=== PATIENT | male | born 1935 | race Caucasian/White ===

== ENCOUNTER → 2016-07-12 08:03 | Outpatient (CLI) | payer MEDICARE, OTHER ==
[2016-05-02 10:38] VITALS: BMI 37.3
[~2016-07-12 08:03] MED LIST: ALLEGRA ALLERG180 MG PO; BAYER CHEWABLE81 MG PO; BETAPACE 80 MG80 MG PO; CARDIZEM LA420 MG PO; CATAFLAM50 MG PO; CELEBREX200 MG PO; CENTRUM SILVER1 TA2 PO; COZAAR100 MG PO; FIBER-LAX625 MG PO; HYDROCODONE-APA1 TAB PO; HYZAAR 100-25 T1 TAB PO; KLOR-CON M2020 MEQ PO; LASIX40 MG PO; LEVAQUIN750 MG PO; PLAVIX75 MG PO; PRADAXA150 MG PO; PRADAXA75 MG PO; PRILOSEC20 MG PO; PYRIDOXINE HCL100 MG PO; SYNTHROID25 MCG PO; XANAX0.25 MG; ZOFRAN4 MG PO
== END | disposition home or self-care (01) ==
LOC: D.RAD 08:03
DX: R10.10 Upper abdominal pain, unspecified (principal)

== ENCOUNTER → 2016-07-19 16:03 | Outpatient (CLI) | payer MEDICARE, OTHER ==
[2016-05-02 10:38] VITALS: BMI 37.3
== END | disposition home or self-care (01) ==
LOC: D.CT 16:03
DX: R10.9 Unspecified abdominal pain (principal)

== ENCOUNTER → 2016-08-30 12:36 | Outpatient (CLI) | payer MEDICARE, OTHER ==
[2016-05-02 10:38] VITALS: BMI 37.3
== END | disposition home or self-care (01) ==
LOC: D.CT 12:36
DX: M54.40 Lumbago with sciatica, unspecified side (principal)

== ENCOUNTER 2016-11-03 05:06 | Inpatient (IN) | payer MEDICARE, OTHER ==
[2016-11-02 15:24] LABS: APPEARANCE CLEAR (CLEAR); BILIRUBIN NEGATIVE (NEGATIVE); COLOR YELLOW (YELLOW); GLUCOSE NEGATIVE (NEGATIVE); KETONE NEGATIVE (NEGATIVE); LEUKOCYTE ESTERASE NEGATIVE (NEGATIVE); NITRITE NEGATIVE (NEGATIVE); PROTEIN NEGATIVE (NEGATIVE); SPECIFIC GRAVITY 1.015 (1.005-1.020); UROBILINOGEN NORMAL (NORMAL)
[2016-11-02 15:29] LABS: BASOPHILS 0.3 % (0-2); EOSINOPHILS 5.1 % (0-7); HEMATOCRIT 42.5 % (42.0-54.0); IMMATURE GRANULOCYTES 0.2 % (0-5); LYMPHOCYTES 35.2 % (15-50); MCH 31.7 pg (26.0-34.0); MCHC 32.9 g/dL (31.0-37.0); MCV 96.2 fL (80.0-100.0); MONOCYTES 12.6 % (2-11); NEUTROPHILS 46.6 % (40-80); PLATELET COUNT 222 10x3/uL (130-400); RBC 4.42 10x6/uL (4.20-6.10); RDW 14.2 % (11.5-14.5); WBC 6.1 10x3/uL (4.8-10.8)
[2016-11-02 15:57] LABS: ANION GAP 13.5 mmol/L (8-16); CALCIUM 8.6 mg/dL (8.5-10.1); CARBON DIOXIDE 26.6 mmol/L (21.0-32.0); CREATININE - SERUM 1.1 mg/dL (0.6-1.3); POTASSIUM - SERUM 4.1 mmol/L (3.5-5.1)
[2016-11-03] VITALS (9 sets, daily range): BP systolic 120–149; BP diastolic 61–79; Ht 180.3 cm; Wt 118.2 kg
[~2016-11-03] VITALS: Ht 180.3 cm; Wt 118.2 kg
[~2016-11-03 05:06] MED LIST changes: +DICLOFENAC SODI50 MG PO; +ELIQUIS2.5 MG PO; +LOSARTAN POTASS25 MG PO
[2016-11-03 16:25] LABS: BASOPHILS 0.1 % (0-2); EOSINOPHILS 3.2 % (0-7); HEMATOCRIT 39.1 % (42.0-54.0); HEMOGLOBIN 12.7 g/dL (13.5-17.5); IMMATURE GRANULOCYTES 0.1 % (0-5); LYMPHOCYTES 18.2 % (15-50); MCH 31.6 pg (26.0-34.0); MCHC 32.5 g/dL (31.0-37.0); MCV 97.3 fL (80.0-100.0); MEAN PLATELET VOLUME 10.3 fL (7.4-10.4); NEUTROPHILS 67.4 % (40-80); PLATELET COUNT 183 10x3/uL (130-400); RBC 4.02 10x6/uL (4.20-6.10); RDW 14.3 % (11.5-14.5); WBC 7.2 10x3/uL (4.8-10.8)
[2016-11-03 16:36] LABS: APTT 28.1 SECONDS (22.8-39.4); INR 1.15 (0.85-1.17); PROTIME 14.6 SECONDS (11.6-15.0)
--- NOTE | 2016-11-03 19:15 | NUR ---
REC'D PATIENT SITTING UP. ALERT AND ORIENTED X4. DENIED PAIN AT THIS TIME. NO DISTRESS NOTED. INSTRUCTED TO CALL IF NEEDED ANYTHING. VERBALIZED UNDERSTANDING. IS AT BEDSIDE. WILL CONT TO MONITOR THROUGHOUT THE NIGHT. BED LOW, LOCKED, CALL LIGHT IN REACH.
[2016-11-04] VITALS: BP 139/76
--- NOTE | 2016-11-04 03:56 | NUR ---
PATIENT IS RESTING IN BED. NO DISTRESS NOTED. IS AT BEDSIDE. WILL CONT TO MONITOR. BED LOW, LOCKED, CALL LIGHT IN REACH.
[2016-11-04 04:00] VITALS: BP 131/67
--- NOTE | 2016-11-04 07:30 | NUR ---
RECIEVED PT DURING WALKING ROUNDS. PT RESTING IN BED WITH NO COMPLAINTS OF PAIN OR DISCOMFORT AT THIS TIME. ASSESSMENT DONE PER FLOWSHEET. BED IN LOW POSITION AND CALL LIGHT WITHIN REACH. WILL CONTINUE TO MONITOR.
[2016-11-04 09:01] VITALS: BP 150/72
--- NOTE | 2016-11-04 10:48 | HP ---
PATIENT: YAMILA GOODWIN MEDICAL RECORD: [id number] ACCOUNT: [id number] LOCATION:[facility] [address] : 36 ADMISSION DATE: 11/03/16 HISTORY AND PHYSICAL EXAMINATION CHIEF COMPLAINT: Back pain. HISTORY OF PRESENT ILLNESS: This is a pleasant 81-year-old gentleman, who is accompanied by his , who has complaints of back pain that is radicular into both legs, but left is worse than right. It is most difficult to walk, standing, makes pain horrendous, sitting pain goes away. He has occasional numbness, but it is rigor. He is on Plavix due to stent placed in April by Dr. Mcclain and Eliquis for AFib. He does not do well with steroids. They caused him to have atrial fib. He has had an MRI that shows foraminal stenosis and has known neurogenic claudication. PAST MEDICAL HISTORY: Significant for the aforementioned AFib and stents. PAST SURGICAL HISTORY: Bilateral knee replacements, cholecystectomy, hernia repair, pacemaker along with stent placement. FAMILY HISTORY: Both parents have . SOCIAL HISTORY: He is . FAMILY DOCTOR: Dr. Wesley. WET END HELPER: Dr. Mcclain. ALLERGIES: PENICILLIN AND STEROIDS. CURRENT MEDICATIONS: Eliquis and Plavix along with Synthroid, sotalol, Lasix, potassium, omeprazole, aspirin, losartan, Linda, diclofenac and fiber. MRI shows L3-L4, left canal stenosis, L5-S1 foraminal stenosis on the left. REVIEW OF SYSTEMS: He denies any recent chest pain, shortness of breath or weight changes. PHYSICAL EXAMINATION: HEENT: Normocephalic. Pupils are equal, reactive to light. CHEST: Clear bilaterally to auscultation. HEART: There is a paced rhythm. EXTREMITIES: Pain in both legs with standing. Dorsiflexion, plantarflexion are intact. IMPRESSIONS: L5-S1 foraminal stenosis on the left, L3 lumbar canal stenosis. PLAN: An L3-L4 bilateral laminectomy and foraminotomy, L5-S1 laminectomy and foraminotomy on the left. The risk and benefits of surgery have been explained to him in detail. Risks include bleeding, failure to relieve symptoms, problems with anesthesia and . Time was allowed for questions, questions were answered. The patient wishes to proceed with surgery. TRANSINT:[id number] Voice Confirmation ID: [id number] DOCUMENT ID: [id number] HISTORY AND PHYSICAL [id number] YAMILA GOODWIN Dictated By: JACKIE PELLETIER I have interviewed/examined the above patient and agree with these documented findings. GERONIMO WHEELER MD at 1048 CC: [id number] DICTATION DATE: 11/02/16 1555 TRACTOR TECHNICIAN: 11/02/16 1833 ADM IN [place] [id number] [place] [id number]
--- NOTE | 2016-11-04 10:48 | OP ---
PATIENT NAME: YAMILA GOODWIN MEDICAL RECORD: [id number] :37 LOCATION:[facility] [address] ADMISSION DATE:11/03/16 SURGEON: GERONIMO PRADHAN MD DATE OF OPERATION: 11/03/2016 DIAGNOSES: L3-L4 lumbar canal stenosis with nerve root compression and L5-S1 foraminal stenosis with nerve root compression. SURGEON: Gernoimo Pradhan MD. ESTIMATED BLOOD LOSS: 50 cc. SUMMARY: The patient was taken to the operating room and after an adequate level of general anesthetic, was placed in a prone position and prepped and draped in the usual aseptic manner. A matrix operating channel was introduced to the interlaminar space on the left using a C-arm fluoroscope to guide this positioning in the operating room. Following this, the medial aspect of the facet joint at L3-L4 was removed with the Midas Harley drill and a Cloward and Kerrison punch was used to remove the overlying lamina from L3 and L4, giving a thorough decompression on the left side. The matrix channel was then directed medially into the right and then further removal of lamina and ventral spinous process was carried down decompressing the canal more centrally and then right neural foramen, a Kerrison punch was used to enlarge the neural foramen on the right. When a thorough decompression had been carried out, the wound was irrigated with an antibiotic solution and then attention was directed to the L5-S1 interlaminar space where a matrix channel was then directed through a 1 inch incision using the C-arm fluoroscope to guide this direction. The medial aspect of the facet joint on the left was then removed and a Kerrison was used to enlarge the neural foramen. A ligamentum flavum was removed, decompressing the neural elements. When this had been completed, the wound was irrigated as well and then a closure carried down in layers using 2-0 and 3-0 Dexon on the deep tissues and then a subcuticular stitch with 4-0 Dexon followed by skin glue. The patient was then taken to recovery in stable condition. TRANSINT:[id number] Voice Confirmation ID: [id number] DOCUMENT ID: [id number] GERONIMO PRADHAN MD at 1048 CC: CECE WINSLOW MD [id number] DICTATION DATE: 11/03/16 1411 RESAW MACHINE OPERATOR: 11/03/16 2327 ADM IN [facility] [address] [place] [id number]
--- NOTE | 2016-11-04 13:08 | NUR ---
IV REMOVED WITH CATH INTACT, DISCHARGE INTSTRUCTIONS GIVEN. PT DISCHARGED VIA WHEELCHAIR TO HOME WITH A FAMILY MEMBER
== END 2016-11-04 13:11 | disposition home or self-care (01) | DRG 42 ==
LOC: D.OPS 05:06 → D.PAN 11:00 → D.MS 14:33 → D.OPS 14:34 → D.MS 11-04 13:11
PROVIDERS: ADMIT Neurological Surgery
PROC: 01NB0ZZ Release Lumbar Nerve, Open Approach (ICD-10-PCS; principal; 2016-11-03 11:00)
DX: G54.4 Lumbosacral root disorders, not elsewhere classified (principal); M48.06 Spinal stenosis, lumbar region; M48.07 Spinal stenosis, lumbosacral region

== ENCOUNTER 2016-11-03 13:00 | Outpatient (CLI) | payer MEDICARE, OTHER ==
[2016-11-03 17:58] VITALS: BMI 36.3
== END 2016-11-04 23:59 | disposition short-term general hospital (02) ==
LOC: D.OPS 13:00
DX: M48.06 Spinal stenosis, lumbar region (principal); G54.4 Lumbosacral root disorders, not elsewhere classified; I25.10 Atherosclerotic heart disease of native coronary artery without angina pectoris; I10 Essential (primary) hypertension; K21.9 Gastro-esophageal reflux disease without esophagitis; Z95.5 Presence of coronary angioplasty implant and graft; E03.9 Hypothyroidism, unspecified; Z01.812 Encounter for preprocedural laboratory examination

== ENCOUNTER → 2017-02-12 15:32 | Outpatient (CLI) | payer MEDICARE, OTHER | END | disposition home or self-care (01) | LOC: D.US 15:32 | DX: G45.9 Transient cerebral ischemic attack, unspecified (principal) ==

== ENCOUNTER → 2017-09-13 10:57 | Outpatient (CLI) | payer MEDICARE, OTHER | END | disposition home or self-care (01) | LOC: D.CT 10:57 | DX: M25.511 Pain in right shoulder (principal) ==

== ENCOUNTER 2017-12-22 02:02 | Observation (INO) | payer MEDICARE, OTHER ==
[~2017-12-22] VITALS: Ht 180.3 cm; Wt 120.3 kg
--- NOTE | ~2017-12-22 | HP ---
PATIENT: YAMILA GOODWIN MEDICAL RECORD: [id number] ACCOUNT: [id number] LOCATION:[address] : 36 ADMISSION DATE: 12/22/17 HISTORY AND PHYSICAL EXAMINATION REASON FOR ADMISSION: Irregular heartbeat and chest pain. HISTORY OF PRESENT ILLNESS: The patient is an 82-year-old male with known history of coronary artery disease post-PTCA and atrial fibrillation. He may have increasing peripheral edema, thought due to his diltiazem. His armorer technician switched him to digoxin approximately 2 weeks ago. He felt fine in the last 2 weeks, moving the yard etc without chest pain. Last evening, he notes irregular heartbeat and some chest tightness. He came to the ER for that reason and he was in atrial fibrillation with a rate of 98. Initial cardiac enzymes showed an elevation of CPK-MB and CPK with normal troponin. His EKG did not show acute ST segment changes. He is admitted for this reason and for cardiology evaluation. PAST MEDICAL HISTORY: AODM, CAD post-multivessel PTCA, atrial fibrillation, obesity, allergic rhinitis, osteoarthritis, essential hypertension, hypothyroidism, history of positive PPD, GERD. PAST SURGICAL HISTORY: Lumbar decompression for stenosis, open cholecystectomy, bilateral knee replacements. Placement of permanent pacemaker. ALLERGIES: STEROIDS MAKE HIS HEART RACE, ALSO PENICILLIN. SOCIAL HISTORY: He quit smoking remotely. He is a nondrinker. He is and retired and his has advancing Alzheimer's dementia. FAMILY HISTORY: Positive for hypertension. CURRENT MEDICATIONS: Linda 180 mg daily, Zithromax 250 mg daily, Eliquis 2.5 mg p.o. b.i.d., Plavix 75 mg p.o. daily, digoxin 0.125 mg p.o. daily, losartan 25 mg p.o. daily, sotalol 120 mg p.o. b.i.d., aspirin 81 mg daily, diclofenac 25 mg p.o. b.i.d., Lasix 40 mg p.o. daily, Klor-Con 20 mEq p.o. t.i.d., Fiber-Lax 625 tablet daily, Prilosec 20 mg daily, levothyroxine 25 mcg p.o. every morning, before meals, breakfast, vitamin B6 100 mg p.o. daily, multivitamin, Centrum Silver 1 p.o. daily. REVIEW OF SYSTEMS: GENERAL: He felt well prior to this episode and for mild respiratory illness. HEENT: No fever, sinus congestion, or sore throat. He has mild hearing difficulty chronically. CARDIAC: Palpitations as mentioned. Mild left precordial chest discomfort after onset of AFib. He has had costochondritis symptoms in the past, but this felt different. It did not radiate. GASTROINTESTINAL: No nausea, vomiting, change in stools or blood per rectum. GENITOURINARY: Nocturia once nightly. ENDOCRINE: Denies polyuria, polydipsia, heat or cold intolerance. NEUROLOGIC: No history of stroke, TIA, or vascular headaches. INTEGUMENT: No rash or itching. PSYCHIATRIC: Denies depressed mood. PHYSICAL EXAMINATION: HISTORY AND PHYSICAL [id number] YAMILA GOODWIN GENERAL: Alert male at this time, in no acute distress. He is alert and oriented. VITAL SIGNS: Heart rate is 98 and regular, blood pressure 161/102 with a sat of 95% on room air, temperature of 98.1. HEENT: Eyes are clear. NECK: No bruits or masses. CHEST: Chest is clear. Chest wall is somewhat tender over the left third sternal rib intercostal space. HEART: Irregular rate without gallop. ABDOMEN: Obese, soft, nontender. GENITOURINARY: Deferred. EXTREMITIES: Show 2+ pretibial edema of the knees and to the feet. NEUROLOGIC: Gait is normal. Speech is clear. Motor and sensory is grossly intact. LABORATORY DATA: His white count is 6900 with H&H of 15.6 and 45.4, platelet count 226,000. Potassium is 4.2, BUN and creatinine are 10 and 1.2, calcium and magnesium are normal. CPK was 323, elevated; CPK-MB is 5. Troponin is less than 0.017. EKG shows atrial fibrillation with a rate of 98, no acute ST segment changes. Chest x-ray shows degenerative changes of the thoracic spine, left chest pacemaker, no cardiopulmonary disease otherwise. ASSESSMENT: 1. Recurrent atrial fibrillation 2. Chest pain. 3. Known coronary artery disease. 4. Hypertension. 5. Obesity. 6. Osteoarthritis. 7. Gastroesophageal reflux disease. 8. Hypothyroidism. PLAN: We will check cardiac enzymes, though this is unlikely angina at this point. Cardiology will need to readdress his antiarrhythmics. He had been well controlled on Cardizem; however, had increased peripheral edema, so it was changed to digoxin as well as sotalol. We will increase losartan for blood pressure control. Further workup pending clinical course. TRANSINT:[id number] Voice Confirmation ID: [id number] DOCUMENT ID: [id number] CECE WINSLOW MD at 0952 CC: [id number] DICTATION DATE: 12/22/17 08 SOLID TIRE FINISHER: 12/22/17 0911 ADM IN [place] [id number] [place] [address]
[2017-12-22] MEDS ORDERED: LANOXIN125 MCG (02:12)
[2017-12-22 02:45] LABS: ALBUMIN 3.7 g/dL (3.4-5.0); ALKALINE PHOSPHATASE 134 U/L (46-116); ALT (SGPT) 29 U/L (10-68); BILIRUBIN - TOTAL 0.59 mg/dL (0.2-1.3); CALC OSMOLALITY 282 mosm/kg (275-300); CALCIUM 8.6 mg/dL (8.5-10.1); CARBON DIOXIDE 31.5 mmol/L (21.0-32.0); CHLORIDE - SERUM 106 mmol/L (98-107); CREATININE - SERUM 1.2 mg/dL (0.6-1.3); GLUCOSE 114 mg/dL (74-106); POTASSIUM - SERUM 4.2 mmol/L (3.5-5.1); PROTEIN - SERUM 7.6 g/dL (6.4-8.2); SODIUM 142 mmol/L (136-145); UREA NITROGEN 10 mg/dL (7-18); eGFR NON AFRICAN AMERICAN 62 mL/min (90-120)
[2017-12-22 02:55] LABS: BASOPHILS 0.1 % (0-2); EOSINOPHILS 4.5 % (0-7); HEMATOCRIT 45.4 % (42.0-54.0); HEMOGLOBIN 15.6 g/dL (13.5-17.5); IMMATURE GRANULOCYTES 0.1 % (0-5); LYMPHOCYTES 28.4 % (15-50); MCH 32.6 pg (26.0-34.0); MCHC 34.4 g/dL (31.0-37.0); MCV 94.8 fL (80.0-100.0); MEAN PLATELET VOLUME 10.4 fL (7.4-10.4); MONOCYTES 10.8 % (2-11); NEUTROPHILS 56.1 % (40-80); PLATELET COUNT 226 10x3/uL (130-400); RBC 4.79 10x6/uL (4.20-6.10); RDW 13.8 % (11.5-14.5); WBC 6.9 10x3/uL (4.8-10.8)
[2017-12-22 02:56] LABS: APPEARANCE CLEAR (CLEAR); BILIRUBIN NEGATIVE (NEGATIVE); COLOR YELLOW (YELLOW); GLUCOSE NEGATIVE (NEGATIVE); KETONE NEGATIVE (NEGATIVE); NITRITE NEGATIVE (NEGATIVE); PROTEIN NEGATIVE (NEGATIVE); UROBILINOGEN NORMAL (NORMAL)
[2017-12-22 02:57] LABS: CREATINE KINASE 323 UL (21-232); MAGNESIUM - SERUM 2.3 mg/dL (1.8-2.4); TROPONIN-I < 0.017 ng/mL (0.000-0.060)
[2017-12-22 03:05] LABS: APTT 30.1 SECONDS (22.8-39.4); INR 1.04 (0.85-1.17); PROTIME 13.2 SECONDS (11.6-15.0)
[2017-12-22 03:06] LABS: D-DIMER-QUANTITATIVE 0.36 ug/mLFEU (0.20-0.54)
[2017-12-22 03:31] VITALS: BP 150/87
[2017-12-22 04:58] VITALS: BP 174/84; Ht 180.3 cm; Wt 120.3 kg
[2017-12-22 08:52] LABS: CKMB 4.1 U/L (0.0-3.6); CREATINE KINASE 251 UL (21-232)
[2017-12-22 08:54] LABS: TROPONIN-I < 0.017 ng/mL (0.000-0.060)
[2017-12-22 08:57] VITALS: BP 128/68
[2017-12-22 12:32] VITALS: BP 133/83
[2017-12-22 14:44] LABS: CKMB 4.1 U/L (0.0-3.6); CREATINE KINASE 242 UL (21-232)
[2017-12-22 14:46] LABS: TROPONIN-I < 0.017 ng/mL (0.000-0.060)
[2017-12-22 16:09] VITALS: BP 164/75
[2017-12-22 18:49] LABS: CKMB 3.5 U/L (0.0-3.6); CREATINE KINASE 210 UL (21-232)
[2017-12-22 19:07] LABS: TROPONIN-I < 0.017 ng/mL (0.000-0.060)
[2017-12-22 20:00] VITALS: BP 130/70
[2017-12-23 04:00] VITALS: BP 164/69
[2017-12-23 05:54] LABS: ANION GAP 8.9 mmol/L (8-16); CALCIUM 8.1 mg/dL (8.5-10.1); CREATININE - SERUM 1.1 mg/dL (0.6-1.3); POTASSIUM - SERUM 3.9 mmol/L (3.5-5.1); T4 THYROXIN - FREE 0.96 ng/dL (0.76-1.46); THYROID STIMULATING HORMONE 1.84 uIU/mL (0.36-3.74)
[2017-12-23 08:55] VITALS: BP 185/81
[2017-12-23] MEDS ORDERED: COZAAR50 MG PO (10:15)
[2017-12-23] MEDS ORDERED: PROTONIX40 MG PO (10:16)
[2017-12-23] MEDS ORDERED: CATAPRES0.1 MG PO (10:16)
== END 2017-12-23 12:27 | disposition home or self-care (01) ==
LOC: D.ER 02:02 → OBSVTIME 03:37 → D.M2 03:37
PROVIDERS: Family Medicine
DX: I48.0 Paroxysmal atrial fibrillation (principal); I25.10 Atherosclerotic heart disease of native coronary artery without angina pectoris; Z95.5 Presence of coronary angioplasty implant and graft; E11.9 Type 2 diabetes mellitus without complications; E66.9 Obesity, unspecified; J30.9 Allergic rhinitis, unspecified; K21.9 Gastro-esophageal reflux disease without esophagitis; I10 Essential (primary) hypertension; E03.9 Hypothyroidism, unspecified

== ENCOUNTER 2018-05-06 15:48 | Emergency (ER) | payer MEDICARE, OTHER ==
[2018-05-06 16:47] LABS: BASOPHILS 0.2 % (0-2); EOSINOPHILS 3.9 % (0-7); HEMATOCRIT 40.4 % (42.0-54.0); HEMOGLOBIN 13.6 g/dL (13.5-17.5); IMMATURE GRANULOCYTES 0.2 % (0-5); LYMPHOCYTES 29.5 % (15-50); MCH 32.4 pg (26.0-34.0); MCHC 33.7 g/dL (31.0-37.0); MCV 96.2 fL (80.0-100.0); MEAN PLATELET VOLUME 10.1 fL (7.4-10.4); MONOCYTES 11.5 % (2-11); NEUTROPHILS 54.7 % (40-80); PLATELET COUNT 215 10x3/uL (130-400); RDW 14.1 % (11.5-14.5)
[2018-05-06 16:57] LABS: INR 1.15 (0.85-1.17); PROTIME 14.2 SECONDS (11.6-15.0)
[2018-05-06 17:03] LABS: ALBUMIN 3.1 g/dL (3.4-5.0); ALKALINE PHOSPHATASE 101 U/L (46-116); ALT (SGPT) 29 U/L (10-68); BILIRUBIN - TOTAL 0.66 mg/dL (0.2-1.3); CALC OSMOLALITY 286 mosm/kg (275-300); CALCIUM 8.4 mg/dL (8.5-10.1); CARBON DIOXIDE 30.2 mmol/L (21.0-32.0); CHLORIDE - SERUM 105 mmol/L (98-107); CREATININE - SERUM 1.3 mg/dL (0.6-1.3); GLUCOSE 116 mg/dL (74-106); POTASSIUM - SERUM 3.7 mmol/L (3.5-5.1); PROTEIN - SERUM 7.1 g/dL (6.4-8.2); SODIUM 144 mmol/L (136-145); UREA NITROGEN 11 mg/dL (7-18); eGFR NON AFRICAN AMERICAN 56 mL/min (90-120)
[2018-05-06 17:09] LABS: CREATINE KINASE 165 UL (21-232); MAGNESIUM - SERUM 1.9 mg/dL (1.8-2.4); TROPONIN-I < 0.017 ng/mL (0.000-0.060)
[2018-05-06 18:19] LABS: CKMB 2.2 U/L (0.0-3.6)
== END 2018-05-06 18:48 | disposition home or self-care (01) ==
LOC: D.ER 15:48
PROVIDERS: Family Medicine
DX: I48.91 Unspecified atrial fibrillation (principal); I10 Essential (primary) hypertension

== ENCOUNTER 2018-12-01 21:15 | Emergency (ER) | payer MEDICARE, OTHER ==
[~2018-12-01] VITALS: Ht 180.3 cm; Wt 122.5 kg
[~2018-12-01 21:15] MED LIST changes: +CATAPRES0.1 MG PO; +COZAAR50 MG PO; +LANOXIN125 MCG; +PROTONIX40 MG PO
[2018-12-01 21:27] VITALS: Ht 180.3 cm; Wt 122.5 kg
[2018-12-01 23:08] VITALS: BP 165/78
== END 2018-12-01 23:08 | disposition home or self-care (01) ==
LOC: D.ER 21:15
DX: S61.215A Laceration without foreign body of left ring finger without damage to nail, initial encounter (principal); W18.30XA Fall on same level, unspecified, initial encounter; Y93.89 Activity, other specified; Y92.89 Other specified places as the place of occurrence of the external cause

== ENCOUNTER 2019-10-19 19:24 | Emergency (ER) | payer MEDICARE, OTHER ==
[~2019-10-19] VITALS: Ht 180.3 cm; Wt 122.7 kg
[2019-10-19 19:37] VITALS: Ht 180.3 cm; Wt 122.7 kg
[2019-10-19 19:56] LABS: BASOPHILS 0.2 % (0-2); EOSINOPHILS 4.4 % (0-7); HEMOGLOBIN 13.8 g/dL (13.5-17.5); IMMATURE GRANULOCYTES 0.2 % (0-5); LYMPHOCYTES 27.5 % (15-50); MCH 31.7 pg (26.0-34.0); MCHC 32.9 g/dL (31.0-37.0); MCV 96.6 fL (80.0-100.0); MONOCYTES 10.3 % (2-11); NEUTROPHILS 57.4 % (40-80); PLATELET COUNT 184 10x3/uL (130-400); RBC 4.35 10x6/uL (4.20-6.10); RDW 14.5 % (11.5-14.5); WBC 8.2 10x3/uL (4.8-10.8)
[2019-10-19 20:04] LABS: CALC OSMOLALITY 282 mosm/kg (275-300); CALCIUM 8.2 mg/dL (8.5-10.1); CARBON DIOXIDE 29.8 mmol/L (21.0-32.0); CHLORIDE - SERUM 106 mmol/L (98-107); CREATININE - SERUM 1.4 mg/dL (0.6-1.3); GLUCOSE 156 mg/dL (74-106); POTASSIUM - SERUM 3.9 mmol/L (3.5-5.1); SODIUM 141 mmol/L (136-145); UREA NITROGEN 10 mg/dL (7-18); eGFR NON AFRICAN AMERICAN 51 mL/min (90-120)
[2019-10-19 20:19] LABS: APTT 22.7 SECONDS (22.8-39.4); INR 1.06 (0.85-1.17); PROTIME 13.7 SECONDS (11.6-15.0)
[2019-10-19 20:21] LABS: ALBUMIN 3.3 g/dL (3.4-5.0); ALKALINE PHOSPHATASE 113 U/L (30-120); ALT (SGPT) 34 U/L (10-68); BILIRUBIN - TOTAL 0.56 mg/dL (0.2-1.3); CKMB 1.7 U/L (0.0-3.6); CREATINE KINASE 174 UL (21-232); MAGNESIUM - SERUM 2.2 mg/dL (1.8-2.4); PRO BNP 192 pg/mL (0-450); PROTEIN - SERUM 7.3 g/dL (6.4-8.2); TROPONIN-I < 0.017 ng/mL (0.000-0.060)
[2019-10-19 20:42] LABS: DIGOXIN 0.38 ng/mL (0.90-2.00); THYROID STIMULATING HORMONE 2.29 uIU/mL (0.36-3.74)
[2019-10-19] MEDS ORDERED: LANOXIN125 MCG PO (21:03)
[2019-10-19 21:30] VITALS: BP 145/89
[2019-10-20] MEDS ORDERED: AVAPRO75 MG PO (01:20)
[2019-10-20] MEDS ORDERED: BYSTOLIC2.5 MG PO (01:21)
[2019-10-20] MEDS ORDERED: CARDURA8 MG PO (01:31)
[2019-10-20] MEDS ORDERED: ELIQUIS2.5 MG PO (01:33)
[2019-10-20] MEDS ORDERED: DILTIAZEM 24HR240 M4 PO (01:35)
[2019-10-20] MEDS ORDERED: CARDIZEM60 MG PO (01:36)
== END 2019-10-19 21:30 | disposition home or self-care (01) ==
LOC: D.ER 19:24
PROVIDERS: Emergency Medicine
DX: I48.0 Paroxysmal atrial fibrillation (principal); R06.00 Dyspnea, unspecified; R53.83 Other fatigue; R00.0 Tachycardia, unspecified; R07.9 Chest pain, unspecified